=== PATIENT | female | born 1965 | race Caucasian/White ===

== ENCOUNTER → 2016-08-06 | Outpatient (CLI) | payer BC, MEDICARE, OTHER | LOC: US 09:48 → MAMO 10:30 | DX: Z12.31 Encounter for screening mammogram for malignant neoplasm of breast (principal); R17 Unspecified jaundice | CPT/HCPCS: 76705; G0202 ==

== ENCOUNTER → 2016-09-08 | Outpatient (CLI) | payer BC | LOC: US 15:30 | DX: E04.1 Nontoxic single thyroid nodule (principal) | CPT/HCPCS: 76536 ==